=== PATIENT | female | born 1945 | race Hispanic/Latino ===

== ENCOUNTER 2018-10-22 16:04 | Emergency (ER) | payer MEDICARE ==
[2018-10-22] MEDS ORDERED: IBUPROFEN 600 MG TABLET ONE (16:29)
[2018-10-22] MEDS ORDERED: ACETAMINOPHEN-CODEINE 300/30MG TAB ONE (16:30)
[2018-10-22 17:57] LABS: ALBUMIN 4.6 g/dL (3.5-5.0); BILIRUBIN,DIRECT 0.1 mg/dL (0.0-0.3); BILIRUBIN,TOTAL 0.3 mg/dL (0.2-1.0)
== END 2018-10-22 18:24 | disposition home or self-care (01) ==
LOC: EDH 16:04
DX: S16.1XXA Strain of muscle, fascia and tendon at neck level, initial encounter (principal); S20.211A Contusion of right front wall of thorax, initial encounter; S00.83XA Contusion of other part of head, initial encounter; E11.9 Type 2 diabetes mellitus without complications; E78.5 Hyperlipidemia, unspecified; I10 Essential (primary) hypertension; W01.0XXA Fall on same level from slipping, tripping and stumbling without subsequent striking against object, initial encounter; Y93.K1 Activity, walking an animal; Y92.89 Other specified places as the place of occurrence of the external cause; Y99.8 Other external cause status
CPT/HCPCS: 36415; 70450; 71250; 72125; 80076